=== PATIENT | female | born 1995 | race Caucasian/White ===

== ENCOUNTER 2021-02-06 14:45 | Emergency (ER) | payer OTHER ==
[2014-04-20 22:15] VITALS: BP 99/65
[~2021-02-06] VITALS: Ht 162.6 cm; Wt 76.0 kg
[~2021-02-06 14:45] MED LIST: AZIT500T PO; ONDA4TAB7 PO; VITAMIN B IM; vitamin D PO
[2021-02-06] MEDS ORDERED: AMOX1TAB61 PO (15:16)
--- NOTE | 2021-02-06 15:17 | PHYS DOC ---
Past History Past Medical History: Migraines (BONNIE RIVERA) Past Surgical History: No Surgical History, Tonsillectomy, Tubal ligation (BONNIE RIVERA) Alcohol Use: None Drug Use: None (BONNIE RIVERA) General Adult EDM: Chief Complaint: EARACHE/EAR PAIN HPI: HPI: Patient is a 25 year old female who presents with left ear pain. Patient states that her ear has been impacted several times over the last few months, but today is the first time she has had pain. She also reports postauricular tenderness. She denies fevers, chills, headache, discharge from the ear. (BONNIE RIVERA) Review of Systems: Review of Systems: ROS negative except as mentioned in HPI. (BONNIE RIVERA) Allergies: Allergies: Allergies Coded Allergies Type Severity Reaction Last Updated Verified adhesive Allergy Intermediate 04/20/14 Yes Uncoded Allergies Type Severity Reaction Last Updated Verified seratonin Allergy Intermediate 04/20/14 (BONNIE RIVERA) Physical Exam: PE: Constitutional: Well developed, well nourished, no acute distress, non-toxic appearance. HENT: Normocephalic, atraumatic, bilateral external ears normal, no tragal tenderness bilaterally, cerumen noted in bilateral ear canals without impaction, right TM pearly becerril without perforation, left TM erythematous without perforation, oropharynx moist, no oral exudates, nose normal. Eyes: PERRLA, EOMI, conjunctiva normal, no discharge. Neck: No masses, no tracheal deviation, left-sided anterior cervical lymphadenopathy appreciated. Cardiovascular: Heart rate regular rhythm, no murmur. Lungs & Thorax: Bilateral breath sounds clear to auscultation. (BONNIE RIVERA) Current Patient Data: Vital Signs: Vital Signs Date Time Temp Pulse Resp B/P (MAP) Pulse Ox O2 Delivery O2 Flow Rate FiO2 02/06/21 14:57 98.2 87 16 135/72 (93) 99 (BONNIE RIVERA) Heart Score: C/O Chest Pain: No (BONNIE RIVERA) Course & Med Decision Making: Course & Med Decision Making Pertinent Labs and Imaging studies reviewed. (See chart for details) Left TM erythematous without perforation. Patient appears to have acute otitis media of the left ear. Patient will be prescribed Augmentin twice daily for 5 days. Patient instructed to take full course of antibiotics. Patient understands and is agreeable to discharge plan. (BONNIE RIVERA) Valeria Disclaimer: Valeria Disclaimer: This electronic medical record was generated, in whole or in part, using a voice recognition dictation system. (BONNIE RIVERA) Departure Departure: Impression: Primary Impression: Left acute otitis media Disposition: HOME / SELF CARE / HOMELESS Condition: STABLE Referrals: TAMAR WAHL MD (PCP) Patient Instructions: Otitis Media, Adult, [id number] Additional Instructions: Please take full course of antibiotics. You can take naproxen or ibuprofen for your discomfort. These medications will also help should you develop a fever also. Return to the emergency department if you develop any new symptoms. Scripts Amoxicillin/Potassium Clav (AUGMENTIN 875-125 TABLET) 1 Each Tablet 1 TAB PO BID for AOM for 5 Days, #10 TAB 0 Refills Prov: BONNIE RIVERA 02/06/21 Attending Signature Attending Signature I have reviewed the PA/CORPORATE ASSOCIATE's note and plan of care. I was available for consultation as needed during the patient's visit in the emergency department. I agree with the clinical impression, plan, and disposition. (BIB GODFREY DO) BONNIE RIVERA Feb 06, 2021 15:17 BIB GODFREY DO Feb 06, 2021 16:02
== END 2021-02-06 15:30 | disposition home or self-care (01) ==
LOC: ER 14:45
DX: H66.92 Otitis media, unspecified, left ear (principal); G43.909 Migraine, unspecified, not intractable, without status migrainosus; Z88.8 Allergy status to other drugs, medicaments and biological substances
CPT/HCPCS: 99283